=== PATIENT | male | born 1990 | race Caucasian/White ===

== ENCOUNTER → 2016-06-15 | Outpatient (CLI) | payer OTHER ==
[~2016-06-15] MED LIST: ETODOLAC200 MG PO; IBUPROFEN800 MG PO; KEFLEX 500MG.500 MG PO; MORPHINE SULFAT30 M3 PO; NOMEDS XX; OXYCODONE 5MG TA5 MG PO; ZITHROMAX Z PA250 MG PO
--- NOTE | 2016-06-15 19:51 | RADIOLOGY REPORT PS360 ---
CERVICAL SPINE 4 OR 5 VIEWS ORDERING PHYSICIAN : Tr Rollins MD PATIENT AGE: 25 years GENDER: Male INDICATION: CERVICAL STENOSIS OF SPINE Cervical stenosis. Neck pain arm numbness in the 2010 fracture neck TECHNIQUE: Five-view cervical spine series COMPARISON: CT cervical spine from 12/11/2014. FINDINGS The vertebral bodies are intact. No fracture. No significant subluxation. Would note subtle 1.4 mm anterior positioning of C3 on C4 likely reflects merely some minor laxity. Does not appear to be a significance. There is slight reversal however of the normal cervical curvature through this upper C-spine. This is similar to the 2014 CT. Spinous processes intact & the relationships between spinous processes satisfactory. Prevertebral soft tissues appear normal.. Relationships at the C2/3 & C3/4 facets normal. Perhaps subtle anterior position of of C4 facet relative to C5 bilaterally which may merely reflect slight reversal of cervical curvature through this region. Subtle observation but noted for completeness . The neural foramen widely patent. Prevertebral soft tissues appear normal. Apices the lungs clear. Postsurgical fixation of the left mandible . IMPRESSION: ------ Findings appear similar to the CT from November 2014. Slight reversal normal cervical curvature at these upper C-spine again noted Scant anterior position C3 on C4 reflects is within normal limits reflects laxity at C-spine which can occur at these levels
== END ==
LOC: RAD 11:08
DX: M48.02 Spinal stenosis, cervical region (principal)